=== PATIENT | female | born 1980 | race Hispanic/Latino ===

== ENCOUNTER 2017-02-21 13:23 | Inpatient (IN) | payer MEDICAID, OTHER ==
--- NOTE | 2017-02-21 14:37 | C.PDOC ---
History Of Present Illness <Rena Hartman - Last Filed: 02/21/17 22:47> <Davis Barker - Last Filed: 02/21/17 23:56> 36 y/o female presents to the ED requesting alcohol detox. Pt admits to alcohol abuse for the past 5 years, history of seizures, last was 5 months ago. Last drink this morning. Pt denies SI, HI, SOB, chest pain, nausea, vomiting, diarrhea, abdominal pain, headache, dizziness or any other complaints. (Rena Hartman) History Per: Patient History/Exam Limitations: no limitations Modifying Factor(s): Alcohol Severity: Mild Associated Symptoms: denies: Suicidal Thoughts Involuntary Hold By: None Recent travel outside of the [place]: No <Rena Hartman - Last Filed: 02/21/17 22:47> <Davis Barker - Last Filed: 02/21/17 23:56> Time Seen by Provider: 02/21/17 14:01 Chief Complaint (Nursing): Substance Abuse Past Medical History Reviewed: Historical Data, Nursing Documentation, Vital Signs - Medical History PMH: Anxiety, Bipolar Disorder (?), Depression Surgical History: Tonsillectomy Family History: States: Unknown Family Hx - Social History Hx Tobacco Use: Yes Hx Alcohol Use: Yes Hx Substance Use: No - Immunization History Hx Tetanus Toxoid Vaccination: No Hx Influenza Vaccination: No Hx Pneumococcal Vaccination: No <Rena Hartman - Last Filed: 02/21/17 22:47> Review Of Systems Except As Marked, All Systems Reviewed And Found Negative. Constitutional: Negative for: Fever Cardiovascular: Negative for: Chest Pain Respiratory: Negative for: Cough, Shortness of Breath Gastrointestinal: Negative for: Nausea, Vomiting, Abdominal Pain, Diarrhea Neurological: Negative for: Headache, Dizziness <Rena Hartman - Last Filed: 02/21/17 22:47> Physical Exam - Physical Exam Appears: Non-toxic, No Acute Distress, Other (intoxicated) Skin: Warm, Dry, No Rash Head: Atraumatic, Normacephalic Nose: Normal Neck: Normal, Normal ROM, Supple Chest: Symmetrical Cardiovascular: Rhythm Regular, No Murmur Respiratory: Normal Breath Sounds, No Rales, No Rhonchi, No Wheezing Gastrointestinal/Abdominal: Normal Exam, Soft, No Tenderness, No Guarding, No Rebound Extremity: Normal ROM Extremity: Bilateral: Atraumatic Neurological/Psych: Oriented x3 <Rena Hartman - Last Filed: 02/21/17 22:47> ED Course And Treatment - Laboratory Results Result Diagrams: 02/21/17 14:58 02/21/17 14:58 <Rena Hartman - Last Filed: 02/21/17 22:47> - Laboratory Results Result Diagrams: 02/21/17 14:58 02/21/17 14:58 Progress Note: Pt was signed out to me at 11pm by JUSTINE Hartman to f/up home mission worker evaluation. Pt was evaluated by the home mission worker and will be admitted to detox. <Davis Barker - Last Filed: 02/21/17 23:56> ED OBSERVATION Date of observation admission: 02/21/17 Time of observation admission: 14:30 <Rena Hartman - Last Filed: 02/21/17 22:47> <Davis Barker - Last Filed: 02/21/17 23:56> - Observation admission statement Patient is being placed in observation because:: Alcohol intoxication, detox (Rena Hartman) - Goals of Observation Goals of observation are:: Diagnostics, sobriety obs, re-eval for detox (Rena Hartman) - Progress Note Progress Note: 02/21/17 At 15:55, pt resting comfortably, not in any apparent distress. Afebrile, hemodynamicaly stable. Non-toxic. Neuorlogicaly intact. At 18:10, diagnostics review, normal. Alcohol 355. At 19: 20, pt sts, " feels anxious, withdrawing" and request Ativan. Pt appears slightly tremulous, anxious. Case discussed with PES and will re-evaluate patient at 11PM when sober. At 22:52, case discussed with ED attending : sobriety, re-eval and PES evaluation- pending. (Rena Hartman) Disposition <Rena Hartman - Last Filed: 02/21/17 22:47> Counseled Patient/Family Regarding: Studies Performed, Diagnosis - Disposition Disposition Time: 23:55 <Davis Barker - Last Filed: 02/21/17 23:56> - Disposition Disposition: HOSPITALIZED Condition: STABLE - Clinical Impression Clinical Impression: Alcohol use disorder, severe, dependence - PA / [employer] / Resident Statement MD/DO has reviewed & agrees with the documentation as recorded. - Scribe Statement The provider has reviewed the documentation as recorded by the Scribe <Rena Hartman - Last Filed: 02/21/17 22:47> <Davis Barker - Last Filed: 02/21/17 23:56> - Scribe Statement Lencho Mena All medical record entries made by the Scribe were at my direction and personally dictated by me. I have reviewed the chart and agree that the record accurately reflects my personal performance of the history, physical exam, medical decision making, and the department course for this patient. I have also personally directed, reviewed, and agree with the discharge instructions and disposition. (Rena Hartman) Decision To Admit <Rena Hartman - Last Filed: 02/21/17 22:47> - Pt Status Changed To: Hospital Disposition Of: Inpatient - Admit Certification Admit to Inpatient:: After my assessment, the patient will require hospitalization for at least two midnights. This is because of the severity of symptoms shown, intensity of services needed, and/or the medical risk in this patient being treated as an outpatient. - InPatient: Physician Admission Certification: I certify that this patient requires 2 or more midnights of care for the following reason:: Detox. - . Bed Request Type: Detox Admitting Physician: Karuna Fernandez <Davis Barker - Last Filed: 02/21/17 23:56> - . Patient Diagnosis: Alcohol use disorder, severe, dependence
[2017-02-21 15:02] LABS: BASO # 0.1 K/uL (0.0-0.2); BASO % 2.5 % (0.0-2.0); EOS # 0.3 K/uL (0.0-0.7); EOS % 4.9 % (0.0-4.0); HEMATOCRIT 37.5 % (34.0-47.0); LYMPH % 35.7 % (20.0-40.0); MEAN CELL VOLUME 94.4 fL (81.0-99.0); MEAN CORPUSCULAR HEMOGLOBIN 31.4 pg (27.0-31.0); MEAN CORPUSCULAR HGB CONC 33.2 g/dL (33.0-37.0); MEAN PLATELET VOLUME 8.9 fL (7.2-11.7); MONO # 0.5 K/uL (0.0-0.8); MONO % 8.8 % (0.0-10.0); RED CELL DISTRIBUTION WIDTH 19.7 % (11.5-14.5); WHITE BLOOD COUNT 5.5 K/uL (4.8-10.8)
[2017-02-21 15:11] LABS: CHLORIDE 102 mmol/L (98-107)
[2017-02-21 15:12] LABS: POTASSIUM 4.1 mmol/L (3.6-5.2); SODIUM 140 mmol/L (132-148)
[2017-02-21 15:14] LABS: ALB/GLOB RATIO 1.5 (1.0-2.1); ALKALINE PHOSPHATASE 83 U/L (38-126); ALT/SGPT 27 U/L (9-52); AST/SGOT 46 U/L (14-36); BILIRUBIN,TOTAL 0.5 mg/dL (0.2-1.3); BLOOD UREA NITROGEN 15 mg/dL (7-17); CARBON DIOXIDE 24 mmol/L (22-30); GFR AFRICAN-AMERICAN > 60; GLUCOSE,RANDOM 86 mg/dL (65-105); TOTAL PROTEIN 7.7 g/dL (6.3-8.3); URINE BILIRUBIN NEGATIVE (NEGATIVE); URINE BLOOD NEGATIVE (NEGATIVE); URINE COLOR Straw (YELLOW); URINE GLUCOSE (UA) NORMAL (Normal); URINE KETONE NEGATIVE (NEGATIVE); URINE LEUKOCYTE ESTERASE NEG Leu/uL (Negative); URINE PROTEIN NEGATIVE (NEGATIVE); URINE UROBILINOGEN NORMAL mg/dL (0.2-1.0); WBC URINE 1 /hpf (0-5)
[2017-02-21 15:15] LABS: CALCIUM 9.1 mg/dl (8.6-10.4)
[2017-02-21 15:32] LABS: ALCOHOL SERUM 335 mg/dl (0-10)
[2017-02-22] MEDS: Multiple Vitamins Tab PO SCH (09:58)
--- NOTE | 2017-02-22 15:45 | PCM.PSYCH ---
Initial Psychiatric Evaluation - Initial Psychiatric Evaluation Type of Admission: Voluntary Legal Status: Capacity Chief Complaint (in patient's own words): "Alcohol detox" History of Present Illness and Precipitating Events: Patient is a 36 year old female who lives with her though they are . She does not work and is supported by her who works in construction. Patient states she drinks 1 liter of vodka a day, as well as wine. Patient's first drink was at age 16. She first noticed it was a problem 7 years ago. She smokes 1 ppd. Patient was at [facility] for 28 days, then went to [facility] for 3 months. She went home from rehab 1 month ago and relapsed. Patient states she has tried suboxone, natrexone, vivitrol, and topomax in the past but they were not 100% effective. Patient states that on Vivitrol, she was drinking less and it was not as enjoyable. Patient has been to detox 15 times and rehab 4 times. Patient used to attend AA but cannot now due to DUI. Patient complains of depression, anxiety, and bipolar. She says she has waves of high energy for one week where she feels like she can do a lot of things and does not sleep. She will then crash for 3 days and not get out of bed. Patient denies trauma, domestic violence, suicide attempts. Patient plans to go to sober [facility] upon discharge. Home meds: abilify, trazodone, gabapentin, and visterol at home. Med: alcohol withdrawal seizures 2 months ago Family psych: both sets of grandparents with depression and anxiety. Time: 34 minutes Current Medications: Active Medications Generic Name Dose Route Start Last Admin Trade Name Freq PRN Reason Stop Dose Admin Aripiprazole 5 mg 02/22/17 22:00 Abilify PO HS ARLINE Chlordiazepoxide 25 mg 02/22/17 06:00 02/22/17 13:14 Librium PO 02/26/17 05:59 25 mg Q6H ARLINE Administration Taper Chlordiazepoxide 25 mg 02/22/17 00:18 02/22/17 09:59 Librium PO 25 mg Q4H PRN Administration Alcohol Withdrawal Folic Acid 1 mg 02/22/17 10:00 02/22/17 09:58 Folic Acid PO 1 mg DAILY ARLINE Administration Gabapentin 300 mg 06/09/17 10:00 02/22/17 13:20 Neurontin PO 300 mg TID ARLINE Administration Hydroxyzine HCl 25 mg 02/22/17 08:54 Atarax PO Q4H PRN Anxiety Ibuprofen 400 mg 02/22/17 08:54 Motrin Tab PO Q6H PRN Pain, moderate (4-7) Multivitamins 1 tab 02/22/17 10:00 02/22/17 09:58 Hexavitamin PO 1 tab DAILY ARLINE Administration Nicotine 1 patch 02/22/17 10:00 02/22/17 11:19 Nicoderm Cq TD 1 patch DAILY ARLINE Administration Thiamine HCl 100 mg 02/22/17 10:00 02/22/17 09:58 Vitamin B1 Tab PO 100 mg DAILY ARLINE Administration Trazodone HCl 100 mg 02/22/17 08:54 Desyrel PO HS PRN Insomnia Past Psychiatric History - Past Psychiatric History Previous Treatment History: Inpatient Pertinent Medical Hx (Current Medical&Sleep Prob, Allergies): Allergies Allergy/AdvReac Type Severity Reaction Status Date / Time No Known Allergies Allergy Verified 02/21/17 14:05 No Known Home Med 09/15/16 Review of Systems - Review of Systems All systems: reviewed and no additional remarkable complaints except - Psychiatric Psychiatric: Anxiety, Depression, Mood Swings. absent: Hallucinations, Homicidal Ideation, Paranoia, Suicidal Ideation Mental Status Examination - Personal Presentation Personal Presentation: Looks stated age - Affect Affect: Broad - Motor Activity Motor Activity: Calm - Reliability in Providing Information Reliability in Providing Information: Good - Speech Speech: Organized - Mood Mood: Depressed - Formal Thought Process Formal Thought Process: No Impairment - Obsessions/Compulsions Obsessions: No Compulsions: No - Cognitive Functions Orientation: Person, Place, Situation, Time Sensorium: Alert Attention/Concentration: Attentive Abstract Thinking: [place] Judgement: Intact, as evidence by: Insight regarding need for hospitalization Memory: Recent intact, as evidence by: Ability to recall events of the day, Remote intact, as evidenced by: Abilit to recall sig. life events - Risk Risk: Withdrawal - Strength & Assets Inventory Strength & Assets Inventory: Family support, Cooperative DSM 5 DX - DSM 5 DSM 5 Diagnosis: Alcohol withdrawal Alcohol use disorder - severe STEVIE Major depression - moderate - Recommended/Plan of Treatment Treatment Recommendations and Plan of Treatment: Alcohol dependence/withdrawal: - Start alcohol detox with Librium - Neurontin 300 mg PO TID - Vitamins - Support and psychoeducation - Refer to rehab post detox - follow up with [facility] - Attend AA after discharge STEVIE: - Atarax 25 mg PO Q4 PRN - anxiety - Support and CBT Major depression - Abilify 5 mg PO HS - Support and psychoeducation - Attend groups Smoking cessation - Nicoderm patch Projected ELOS: 4-5 days Prognosis: good - Smoking Cessation Smoking Cessation Initiated: Yes
[2017-02-22] MEDS: AVEENO TOP SCH ×2 (17:01→18:14)
--- NOTE | 2017-02-23 08:13 | PCM.PYCHPN ---
Psychiatric Progress Note - Psychiatric Progress Note Patient seen today, length of contact: 15 min Patient Chief Complaint: 'I was experiencing withdrawal symptoms.' Problems Identified/Issues Discussed: Patient seen and evaluated, chart reviewed and discussed with the nurse. The patient reports anxiety and reports withdrawal symptoms including shakes, anxiety, headaches and sweating. She reports irritable mood but denies any feelings of hopelessness or helplessness. She denies any suicidal ideation or homicidal ideation. She is tolerating the detox medications and denies any side effects. Supportive therapy and psychoeducation were given. Medication Change: Yes (Librium taper) Medical Record Reviewed: Yes Mental Status Examination - Cognitive Function Orientation: Person, Place, Situation, Time Memory: Intact Attention: WNL Concentration: Poor Association: WNL Fund of Knowledge: Poor - Mood Mood: Anxious - Affect Affect: Constricted - Speech Speech: Appropriate - Formal Thought Process Formal Thought Process: No Impairment - Suicidal Ideation Suicidal Ideation: No - Homicidal Ideation Homicidal Ideation: No Goal/Treatment Plan - Goal/Treatment Plan Need for Continued Stay: Discharge may exacerbated symptoms, Severe functional impairment Progress Toward Problem(s) and Goals/Treatment Plan: Alcohol dependence/withdrawal: - Start alcohol detox with Librium - Neurontin 300 mg PO TID - Vitamins - Support and psychoeducation - Refer to rehab post detox - follow up with [facility] - Attend AA after discharge STEVIE: - Atarax 25 mg PO Q4 PRN - anxiety - Support and CBT Major depression - Abilify 5 mg PO HS - Support and psychoeducation - Attend groups Smoking cessation - Nicoderm patch - Smoking Cessation Smoking Cessation Initiated: No
[2017-02-23] MEDS: AVEENO TOP SCH ×2 (10:14→17:00)
[2017-02-23] MEDS: Multiple Vitamins Tab PO SCH (10:15)
[2017-02-23] MEDS ORDERED: Magnesium Hydroxide Susp 30 ml UD PO ONE (22:15)
[2017-02-24] MEDS: Multiple Vitamins Tab PO SCH (10:17)
[2017-02-24] MEDS: AVEENO TOP SCH ×2 (10:17→17:08)
[2017-02-24 11:35] VITALS: RESP 18
--- NOTE | 2017-02-24 13:44 | PCM.PYCHPN ---
Psychiatric Progress Note - Psychiatric Progress Note Patient seen today, length of contact: 16 min Patient Chief Complaint: feeling very anxious Problems Identified/Issues Discussed: Patient seen and evaluated, chart reviewed and discussed with the nurse. Today patient reports racing of thoughts, anxiety and poor sleep. As per staff patient remained anxious and med seeking. However she denies any feelings of hopelessness or helplessness and denies any suicidal ideation or homicidal ideation. She is tolerating the detox medications and denies any side effects. Supportive therapy and psychoeducation were given. Medication Change: Yes (Librium taper, Increase Abilify) Medical Record Reviewed: Yes Mental Status Examination - Cognitive Function Orientation: Person, Place, Situation, Time Memory: Intact Attention: WNL Concentration: Poor Association: WNL Fund of Knowledge: Poor - Mood Mood: Anxious - Affect Affect: Broad - Speech Speech: Soft - Formal Thought Process Formal Thought Process: No Impairment - Suicidal Ideation Suicidal Ideation: No - Homicidal Ideation Homicidal Ideation: No Goal/Treatment Plan - Goal/Treatment Plan Need for Continued Stay: Discharge may exacerbated symptoms, Severe functional impairment Progress Toward Problem(s) and Goals/Treatment Plan: Alcohol dependence/withdrawal: - Start alcohol detox with Librium - Neurontin 300 mg PO TID - Vitamins - Support and psychoeducation - Refer to rehab post detox - follow up with [facility] - Attend AA after discharge STEVIE: - Atarax 25 mg PO Q4 PRN - anxiety - Support and CBT Major depression - Increase Abilify 10 mg PO HS - Support and psychoeducation - Attend groups Smoking cessation - Nicoderm patch - Smoking Cessation Smoking Cessation Initiated: No
[2017-02-24] MEDS ORDERED: Bacitracin Ointment 30 GM TUBE TOP PRN (13:54)
--- NOTE | 2017-02-25 08:44 | PCM.PYCHDC ---
Mental Status Examination - Mental Status Examination Orientation: Person, Place, Situation, Time Memory: Intact Mood: Neutral Affect: Broad Speech: Appropriate Attention: WNL Concentration: WNL Association: WNL Fund of Knowledge: WNL Formal Thought Process: No Impairment Suicidal Ideation: No Current Homicidal Ideation?: No Discharge Summary - Discharge Note Reason for Hospitalization: Alcohol detox Consultations:: List each consultation separately and include: 1. Reason for request. 2. Findings. 3. Follow-up Summary of Hospital Course include:: 1. Description of specific treatment plan utilized for patients during their course of treatmen. 2. Summarize the time- course for resolution of acute symptoms and/or regressed behaviors. 3. Describe issues identified and worked on during hospitalization. 4. Describe medication utilized. 5. Describe medical problems identified and treated. 6. Reassessment of suicide risk Summary of Hospital Course: The pt was admitted and started on treatment for alcohol detox with psychotherapy, support, psychoeducation and medications. WA and CBT used. The pt attended groups and activities, as well as milieu therapy. All the risks and benefits of medications are discussed and the patient understood and agreed. After care discussed with the patient. Pt to go to [facility] followed by [facility] once they are open. Attend AA and group sessions. - Final Diagnosis (DSM 5) Condition upon Discharge: STABLE DSM 5: Alcohol withdrawal Alcohol use disorder - severe STEVIE Major depression - moderate Disposition: HOME/ ROUTINE Follow-up Treatment Plan: Continue below medications after discharge. Follow after care plan as discussed. Use relapse prevention skills Return to ER or call 911 if suicidal, homicidal or symptoms relapse. Stay away from stress, alcohol and drugs. Attend AA and group meetings. See primary doctor once a year. Prescriptions/Medication Reconciliation: ARIPiprazole [Abilify] 10 mg PO HS #30 tab Gabapentin [Neurontin] 300 mg PO TID #90 cap traZODone [Desyrel] 100 mg PO HS PRN #30 tab PRN Reason: Insomnia - Smoking Cessation Smoking Cessation Medication prescribed: No - Antipsychotic Medications Pt discharged on 2 or more routine antipsychotic medications: No
[2017-02-25] MEDS: Multiple Vitamins Tab PO SCH (09:03)
[2017-02-25] MEDS: AVEENO TOP SCH (09:04)
[2017-02-25 09:30] VITALS: BP 100/75; PULSE 87; TEMP 97.6; O2SAT 99
== END 2017-02-25 10:40 | disposition home or self-care (01) | DRG 751 ==
LOC: C.ER 13:23 → C.9OBSV 14:30 → OBSVTOIN 23:56 → C.7D 02-22 00:08
PROVIDERS: ADMIT Psychiatry & Neurology Psychiatry; ATTEND Psychiatry & Neurology Psychiatry
PROC: HZ2ZZZZ Detoxification Services for Substance Abuse Treatment (ICD-10-PCS; principal; 2017-02-21)
PROC: HZ56ZZZ Individual Psychotherapy for Substance Abuse Treatment, Psychoeducation (ICD-10-PCS; 2017-02-21)
PROC: HZ59ZZZ Individual Psychotherapy for Substance Abuse Treatment, Supportive (ICD-10-PCS; 2017-02-21)
DX: F10.230 Alcohol dependence with withdrawal, uncomplicated (principal); F31.9 Bipolar disorder, unspecified; F10.220 Alcohol dependence with intoxication, uncomplicated; Y90.8 Blood alcohol level of 240 mg/100 ml or more; F41.1 Generalized anxiety disorder; F17.210 Nicotine dependence, cigarettes, uncomplicated

== ENCOUNTER 2017-09-27 17:01 | Inpatient (IN) | payer MEDICAID, OTHER ==
--- NOTE | 2017-09-27 17:37 | C.PDOC ---
History Of Present Illness 37 year old female presents to the emergency department requesting detox from alcohol. Reports she drinks about 1 L of alcohol daily. Last drink was this morning. Patient is prescreened. Denies any suicidal or homicidal ideation. Time Seen by Provider: 09/27/17 17:22 Chief Complaint (Nursing): Psychiatric Evaluation History Per: Patient History/Exam Limitations: no limitations Past Medical History Reviewed: Historical Data, Nursing Documentation, Vital Signs Vital Signs: Last Vital Signs Temp 98.3 F 09/27/17 17:16 Pulse 111 H 09/27/17 17:16 Resp 19 09/27/17 17:16 BP 119/83 09/27/17 17:16 Pulse Ox 96 09/27/17 19:07 - Medical History PMH: Anxiety, Bipolar Disorder (?), Depression Surgical History: Tonsillectomy - [facility] Procedures DETOXIFICATION SERVICES FOR SUBSTANCE ABUSE TREATMENT (02/21/17) GROUP [employer] FOR SUBSTANCE ABUSE TREATMENT, PSYCHOEDUCATION (06/22/16) INDIV PSYCHOTHERAPY FOR SUBSTANCE ABUSE TREATMENT, SUPPORT (02/21/17) INDIV PSYCHOTHERAPY FOR SUBSTANCE ABUSE, PSYCHOEDUCATION (02/21/17) Family History: States: Unknown Family Hx - Social History Hx Tobacco Use: Yes Hx Alcohol Use: Yes Hx Substance Use: No - Immunization History Hx Tetanus Toxoid Vaccination: Yes Hx Influenza Vaccination: No Hx Pneumococcal Vaccination: No Review Of Systems Except As Marked, All Systems Reviewed And Found Negative. Physical Exam - Physical Exam Appears: Well, No Acute Distress, Other (Alcohol on breath) Skin: Normal Color, Warm, Dry Head: Atraumatic, Normacephalic Eye(s): bilateral: Normal Inspection, EOMI Neck: Normal ROM Cardiovascular: Rhythm Regular, No Murmur Respiratory: Normal Breath Sounds, No Decreased Breath Sounds, No Accessory Muscle Use, No Wheezing Gastrointestinal/Abdominal: Normal Exam, Soft, No Tenderness Extremity: Bilateral: Atraumatic, Normal Color And Temperature, Normal ROM Neurological/Psych: Oriented x3, Normal Speech Gait: Steady ED Course And Treatment - Laboratory Results Result Diagrams: 09/27/17 18:26 09/27/17 18:26 Lab Interpretation: No Acute Changes O2 Sat by Pulse Oximetry: 96 (RA) Pulse Ox Interpretation: Normal Medical Decision Making Medical Decision Making: Labs ordered and reviewed. LFT elevated, likely related to alcoholism. ETOH is 345 tail worker contacted for evaluation. Needs to wait for sobriety Patient signed out to JUSTINE Tripp pending crisis evaluation and admission for detox Disposition - Disposition Disposition Time: 19:00 Condition: STABLE - POA Present On Arrival: None - Clinical Impression Clinical Impression: Alcohol dependence - Scribe Statement Scribe Attestation: Documented by Rosa Maria Canales, acting as a scribe for Trinity Chester PA-C. Provider Scribe Attestation: All medical record entries made by the Scribe were at my direction and personally dictated by me. I have reviewed the chart and agree that the record accurately reflects my personal performance of the history, physical exam, medical decision making, and the department course for this patient. I have also personally directed, reviewed, and agree with the discharge instructions and disposition. Physician Patient Turnover Patient Signed Over To: Natalie Tripp Handoff Comments: Pending sobriety, crisis eval, dispo
[2017-09-27 17:58] LABS: HCG,QUALITATIVE URINE NEGATIVE (NEGATIVE); SQUAMOUS EPITHIAL 9 /hpf (0-5); URINE BACTERIA RARE (<OCC); URINE BILIRUBIN NEGATIVE (NEGATIVE); URINE BLOOD NEGATIVE (NEGATIVE); URINE CLARITY Hazy (Clear); URINE COLOR Yellow (YELLOW); URINE GLUCOSE (UA) NORMAL (Normal); URINE LEUKOCYTE ESTERASE NEG Leu/uL (Negative); URINE NITRATE NEGATIVE (NEGATIVE); URINE PROTEIN NEGATIVE (NEGATIVE); URINE UROBILINOGEN NORMAL mg/dL (0.2-1.0)
[2017-09-27 18:10] LABS: BARBITURATES, UR NEGATIVE (NEGATIVE); OPIATES, UR NEGATIVE (NEGATIVE); PHENCYCLIDINE, UR NEGATIVE (NEGATIVE)
[2017-09-27 18:11] LABS: BENZODIAZEPINES, UR POSITIVE (NEGATIVE)
[2017-09-27 18:36] LABS: BASO # 0.2 K/uL (0.0-0.2); BASO % 2.9 % (0.0-2.0); EOS # 0.1 K/uL (0.0-0.7); EOS % 2.6 % (0.0-4.0); HEMOGLOBIN 13.5 g/dL (11.0-16.0); LYMPH # 2.9 K/uL (1.0-4.3); LYMPH % 52.1 % (20.0-40.0); MEAN CELL VOLUME 87.6 fL (81.0-99.0); MEAN CORPUSCULAR HEMOGLOBIN 30.5 pg (27.0-31.0); MEAN CORPUSCULAR HGB CONC 34.9 g/dL (33.0-37.0); MEAN PLATELET VOLUME 8.1 fL (7.2-11.7); MONO # 0.6 K/uL (0.0-0.8); MONO % 11.4 % (0.0-10.0); NEUT # 1.7 K/uL (1.8-7.0); NRBC % 0.1 % (0.0-2.0); RBC 4.41 Mil/uL (3.80-5.20); RED CELL DISTRIBUTION WIDTH 16.6 % (11.5-14.5); WHITE BLOOD COUNT 5.6 K/uL (4.8-10.8)
[2017-09-27 18:42] LABS: ALB/GLOB RATIO 1.3 (1.0-2.1); ALBUMIN 4.4 g/dL (3.5-5.0); ALT/SGPT 280 U/L (9-52); AST/SGOT 91 U/L (14-36); BLOOD UREA NITROGEN 16 mg/dL (7-17); CALCIUM 8.9 mg/dl (8.6-10.4); GFR AFRICAN-AMERICAN > 60; GFR NON-AFRICAN AMERICAN > 60
--- NOTE | 2017-09-28 04:12 | PCM.BM ---
<Mehnaz Ortiz - Last Filed: 09/28/17 04:11> Treatment Plan Problems - Problems identified on initial assessmt Ineffective Coping Skills Date Initiated: 09/28/17 Time Initiated: 04:11 Assessment reference: NA Status: Active Treatment assets and liabiliti Patient Assests: ADL independent Patient Liabilities: substance abuse - Milieu Protocol Maintain good personal hygiene: daily Encourage regular showers, daily Remind patient to perform daily oral care, other Assist patient to perform ADL's Maintain personal safety: every shift Educate patient to report safety concerns to staff, every shift Monitor environment for contraband/sharps Medication safety: Monitor for expected outcome, potential side effects: every shift, Assess barriers to learning: every shift, Assess readiness for medication education: every shift <Vamshi Isidro - Last Filed: 09/30/17 14:56> - Diagnosis (1) Alcohol dependence Status: Acute Interventions: 09/30/17 14:57 * Assess 7x/week regarding severity of withdrawal * Educate regarding risks, benefits, side effects and alternatives of medications * Use Motivational Interviewing for abstinence * Use CBT for relapse prevention * Medication management for withdrawal symptoms * Encourage medication assisted treatment * <Ashlyn Culver - Last Filed: 09/30/17 16:13> Family Contact Family involvement: Famliy/SO not involved Family contact: Patient declines to allow family contact at present - Goals for Treatment Patient goals for treatment: Complete detox and apply for Sober Living Residence.
[2017-09-28] MEDS: Multiple Vitamins Tab PO SCH (09:11)
--- NOTE | 2017-09-28 10:11 | PCM.PSYCH ---
Initial Psychiatric Evaluation - Initial Psychiatric Evaluation Type of Admission: Voluntary Legal Status: Capacity Chief Complaint (in patient's own words): I came in to get help.' History of Present Illness and Precipitating Events: Pt. is a 37 y/o CF, , unemployed, who lives with her and who came to the ED to get help in alcohol detox. Pt. reports that she was attending an inpt rehab, [facility] and she relapsed as soon as she came home, almost 2 weeks ago. Pt. reports of drinking almost 4 pints-1 liter daily. Yesterday she consumed more than 2 pints and started shaking, so she came to the to get help. Patient reports withdrawal symptoms including sweating, headaches, anxiety, and nausea. Patient reports that she has been for about 7 years and her also drinks daily. However, Pt.s refuses to get help for his drinking. Pt. reports that she also suffers from anxiety and depression. Pt. also reports that her father and older sister also suffer from anxiety and depression. Pt. denies any past psychiatric admissions, but admitted to receiving psychiatric treatment with a private doctor. Pt. reports that she took her first drink at age 16 and began to drink excessively after she got . Pt. has no children. Pt. denies any arrest records or history of domestic violence. However , she denies any feelings of hopelessness and helplessness. Denies any suicidal ideation or homicidal ideation. Patient denies any auditory or visual hallucinations or any psychotic symptoms. Denies any manic symptoms. Denies any other substance abuse. PMH None reported Current Medications: Active Medications Generic Name Dose Route Start Last Admin Trade Name J Luis PRN Reason Stop Dose Admin Folic Acid 1 mg 09/28/17 10:00 09/28/17 09:11 Folic Acid PO 1 mg DAILY ARLINE Administration Hydroxyzine HCl 25 mg 09/28/17 04:18 Atarax PO Q4H PRN Anxiety Lorazepam 2 mg 09/28/17 08:30 09/28/17 09:11 Ativan PO 10/03/17 08:29 2 mg Q4 ARLINE Administration Taper Multivitamins 1 tab 09/28/17 10:00 09/28/17 09:11 Hexavitamin PO 1 tab DAILY ARLINE Administration Ondansetron HCl 4 mg 09/28/17 05:09 Zofran Odt PO Q8H PRN Nausea/Vomiting Thiamine HCl 100 mg 09/28/17 10:00 09/28/17 09:11 Vitamin B1 Tab PO 100 mg DAILY ARLINE Administration Trazodone HCl 50 mg 09/28/17 08:07 Desyrel PO HS PRN Insomnia Past Psychiatric History - Past Psychiatric History Previous Treatment History: None Pertinent Medical Hx (Current Medical&Sleep Prob, Allergies): Allergies Allergy/AdvReac Type Severity Reaction Status Date / Time No Known Allergies Allergy Verified 09/27/17 17:19 ARIPiprazole [Abilify] 10 mg PO HS #30 tab 02/25/17 Gabapentin [Neurontin] 300 mg PO TID #90 cap 02/25/17 Home Med 1 unit TOP BID ea 02/25/17 traZODone [Desyrel] 100 mg PO HS PRN #30 tab 02/25/17 Review of Systems - Review of Systems All systems: reviewed and no additional remarkable complaints except - Psychiatric Psychiatric: Anxiety, Irritability, Mood Swings Mental Status Examination - Personal Presentation Personal Presentation: Looks stated age - Affect Affect: Constricted - Motor Activity Motor Activity: Calm - Reliability in Providing Information Reliability in Providing Information: Good - Speech Speech: Organized - Mood Mood: Depressed, Anxious - Formal Thought Process Formal Thought Process: No Impairment - Obsessions/Compulsions Obsessions: No Compulsions: No - Cognitive Functions Orientation: Person, Place, Situation, Time Sensorium: Alert Attention/Concentration: Attentive Abstract Thinking: [place] Estimate of Intelligence: Below average Judgement: Imparied, as evidence by: Poor judgement, Imparied, as evidence by: Lack of insight into illness - Risk Risk: Withdrawal, Diminished functioning - Strength & Assets Inventory Strength & Assets Inventory: Family support DSM 5 DX - DSM 5 DSM 5 Diagnosis: Alcohol use disorder severe Alcohol withdrawal uncomplicated Bipolar disorder MRE depressed mild - Recommended/Plan of Treatment Treatment Recommendations and Plan of Treatment: Alcohol use disorder severe -CBT -Psychoeducation -Supportive therapy, individual therapy -Use GA for abstinence Alcohol withdrawal uncomplicated -CBT -Psychoeducation -Supportive therapy, individual therapy -Ativanm when necessary -Start Ativan taper -Start folic acid/thiamine/multivitamin Bipolar disorder MRE depressed mild -CBT -Psychoeducation -Supportive therapy, group therapy, individual therapy -Abilify 10 mg PO QHS -Neurontin 300 mg PO TID -Trazodone 50 mg by mouth daily at bedtime
[2017-09-29] MEDS: Multiple Vitamins Tab PO SCH (10:04)
--- NOTE | 2017-09-29 12:27 | PCM.PYCHPN ---
Psychiatric Progress Note - Psychiatric Progress Note Patient seen today, length of contact: 15 min Patient Chief Complaint: I am feeling little better.' Problems Identified/Issues Discussed: Patient seen and evaluated, chart reviewed and discussed with the nurse. Patient remained isolated, confined and withdrawn. She still reports withdrawal symptoms including nausea, headaches, cramps and sweating. She reports irritable mood but denies any feelings of hopelessness and helplessness. She denies any SI/HI/AVH. She is taking medication and denies any side effects. She needs more time for stabilization. Supportive therapy and psychoeducation were given. Medication Change: Yes Medical Record Reviewed: Yes Mental Status Examination - Cognitive Function Orientation: Person, Place, Situation, Time Memory: Intact Attention: WNL Concentration: Poor Association: WNL Fund of Knowledge: Poor - Mood Mood: Depressed, Anxious - Affect Affect: Constricted - Speech Speech: Soft - Formal Thought Process Formal Thought Process: No Impairment - Suicidal Ideation Suicidal Ideation: No - Homicidal Ideation Homicidal Ideation: No Goal/Treatment Plan - Goal/Treatment Plan Need for Continued Stay: Severe depression anxiety, Severe functional impairment Progress Toward Problem(s) and Goals/Treatment Plan: Alcohol use disorder severe -CBT -Psychoeducation -Supportive therapy, individual therapy -Use CA for abstinence Alcohol withdrawal uncomplicated -CBT -Psychoeducation -Supportive therapy, individual therapy -Ativanm when necessary -Ativan taper -Folic acid/thiamine/multivitamin Bipolar disorder MRE depressed severe without psychotic features -CBT -Psychoeducation -Supportive therapy, group therapy, individual therapy -Abilify 10 mg PO QHS -Neurontin 300 mg PO TID -Trazodone 50 mg by mouth daily at bedtime
[2017-09-30] MEDS: Multiple Vitamins Tab PO SCH (09:36)
[2017-09-30 13:08] LABS: HEPATITIS B SURFACE AG NEGATIVE (NEGATIVE)
[2017-09-30 13:13] LABS: HEPATITIS A IGM NEGATIVE (NEGATIVE); HEPATITIS B CORE AB Negative (NEGATIVE)
--- NOTE | 2017-09-30 13:19 | PCM.PYCHPN ---
Psychiatric Progress Note - Psychiatric Progress Note Patient seen today, length of contact: 15 min Patient Chief Complaint: "I need to go to a sober living place" Problems Identified/Issues Discussed: The pt is seen, chart reviewed, case discussed with staff. 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 Support given, CBT and AZ used briefly No new symptoms reported, improving slowly and needs more time No SEs from medications, risks discussed. After care discussed - she says she cannot go back home b/c the oliver and she already contacted some [facility] and also may be a rehab She got her 3rd DUI last year and did 3 months in [facility] and 3 months in rehab. Medication Change: Yes Medical Record Reviewed: Yes Mental Status Examination - Cognitive Function Orientation: Person, Place, Situation, Time Memory: Intact Attention: WNL Concentration: Poor Association: WNL Fund of Knowledge: Poor - Mood Mood: Depressed, Anxious - Affect Affect: Constricted - Speech Speech: Soft - Formal Thought Process Formal Thought Process: No Impairment - Suicidal Ideation Suicidal Ideation: No - Homicidal Ideation Homicidal Ideation: No Goal/Treatment Plan - Goal/Treatment Plan Need for Continued Stay: Severe depression anxiety, Severe functional impairment Progress Toward Problem(s) and Goals/Treatment Plan: Ativan detox Gabapentin for augmentation Topamax for alcohol cravings As needed medications All risks, benefits and alternatives of the meds discussed, and the pt agreed and understood. Attend groups and activities Supportive therapy and psychoeducation AZ for abstinence CBT for relapse prevention Encourage MAT Refer to rehab or IOP, and self-help groups Smoking cessation with AZ Nicotine patch 34 min - Smoking Cessation Smoking Cessation Initiated: Yes
[2017-09-30 13:25] LABS: HEPATITIS C ANTIBODY Negative (NEGATIVE)
[2017-10-01] MEDS: Multiple Vitamins Tab PO SCH (09:33)
--- NOTE | 2017-10-01 13:57 | PCM.PYCHPN ---
Psychiatric Progress Note - Psychiatric Progress Note Patient seen today, length of contact: 16 min Patient Chief Complaint: "I am feeling very anxious" Problems Identified/Issues Discussed: The pt is seen, chart reviewed, case discussed with staff. Patient states she is feeling very anxious. Discussed with patient that she must ask the nurse for medications. The pt is compliant with medications and reports no side-effects. Symptoms are improving but needs more time to stabilize. After care discussed, support and psychoeducation given. Medication Change: Yes Medical Record Reviewed: Yes Mental Status Examination - Cognitive Function Orientation: Person, Place, Situation, Time Memory: Intact Attention: WNL Concentration: WNL Association: WNL Fund of Knowledge: WNL - Mood Mood: Anxious - Affect Affect: Broad - Speech Speech: Soft - Formal Thought Process Formal Thought Process: No Impairment - Suicidal Ideation Suicidal Ideation: No - Homicidal Ideation Homicidal Ideation: No Goal/Treatment Plan - Goal/Treatment Plan Need for Continued Stay: Severe depression anxiety, Severe functional impairment Progress Toward Problem(s) and Goals/Treatment Plan: Ativan detox Gabapentin for augmentation Topamax for alcohol cravings As needed medications All risks, benefits and alternatives of the meds discussed, and the pt agreed and understood. Attend groups and activities Supportive therapy and psychoeducation PA for abstinence CBT for relapse prevention Encourage MAT Refer to rehab or IOP, and self-help groups Smoking cessation with PA Nicotine patch
[2017-10-02] MEDS: Multiple Vitamins Tab PO SCH (09:09)
[2017-10-02 16:19] VITALS: RESP 18
[2017-10-02] MEDS ORDERED: Vitamins A & D Oint UD Foilpak TOP PRN (18:19)
--- NOTE | 2017-10-03 00:36 | PCM.PYCHPN ---
Psychiatric Progress Note - Psychiatric Progress Note Patient seen today, length of contact: 16 min Patient Chief Complaint: "I am better" Problems Identified/Issues Discussed: The pt is seen, chart reviewed, case discussed with staff. Support given, CBT and NE used briefly No new symptoms reported, improving slowly and needs more time No SEs from medications, risks discussed. After care discussed: [facility] Medication Change: Yes (detox changes daily) Medical Record Reviewed: Yes Mental Status Examination - Cognitive Function Orientation: Person, Place, Situation, Time Memory: Intact Attention: WNL Concentration: WNL Association: WNL Fund of Knowledge: WNL - Mood Mood: Anxious - Affect Affect: Broad - Speech Speech: Soft - Formal Thought Process Formal Thought Process: No Impairment - Suicidal Ideation Suicidal Ideation: No - Homicidal Ideation Homicidal Ideation: No Goal/Treatment Plan - Goal/Treatment Plan Need for Continued Stay: Severe depression anxiety, Severe functional impairment Progress Toward Problem(s) and Goals/Treatment Plan: Ativan detox Gabapentin for augmentation Topamax for alcohol cravings As needed medications All risks, benefits and alternatives of the meds discussed, and the pt agreed and understood. Attend groups and activities Supportive therapy and psychoeducation NE for abstinence CBT for relapse prevention Encourage MAT Refer to rehab or IOP, and self-help groups Smoking cessation with NE Nicotine patch
[2017-10-03 05:17] VITALS: O2SAT 99
[2017-10-03 07:52] VITALS: BP 95/69; PULSE 90; TEMP 98.3
--- NOTE | 2017-10-03 14:34 | PCM.PYCHDC ---
Mental Status Examination - Mental Status Examination Orientation: Person, Place, Situation, Time Memory: Intact Mood: Neutral Affect: Broad Speech: Appropriate Attention: WNL Concentration: WNL Association: WNL Fund of Knowledge: WNL Formal Thought Process: No Impairment Suicidal Ideation: No Current Homicidal Ideation?: No Discharge Summary - Discharge Note Reason for Hospitalization: Detox from alcohol Consultations:: List each consultation separately and include: 1. Reason for request. 2. Findings. 3. Follow-up Summary of Hospital Course include:: 1. Description of specific treatment plan utilized for patients during their course of treatmen. 2. Summarize the time- course for resolution of acute symptoms and/or regressed behaviors. 3. Describe issues identified and worked on during hospitalization. 4. Describe medication utilized. 5. Describe medical problems identified and treated. 6. Reassessment of suicide risk Summary of Hospital Course: The pt was admitted and started on treatment with psychotherapy, support, psychoeducation and medications. IL and CBT used. The pt attended groups and activities, as well as milieu therapy. All the risks and benefits of medications are discussed and the patient understood and agreed. The pt improved with the treatments provided. After care discussed with the patient. She went to a [facility] - Final Diagnosis (DSM 5) Condition upon Discharge: STABLE DSM 5: Alcohol use disorder severe Alcohol withdrawal uncomplicated Bipolar disorder MRE depressed mild Disposition: REHAB FACILITY/REHAB UNIT Follow-up Treatment Plan: Continue below medications after discharge. Follow after care plan as discussed. Use relapse prevention skills Return to ER or call 911 if suicidal, homicidal or symptoms relapse. Stay away from stress, alcohol and drugs. See primary doctor regularly and get labs. Prescriptions/Medication Reconciliation: ARIPiprazole [Abilify] 10 mg PO DAILY #30 tab Gabapentin [Neurontin] 400 mg PO TID #90 cap Topiramate [Topamax] 50 mg PO BID #60 tab traZODone [Desyrel] 100 mg PO HS PRN #30 tab PRN Reason: Insomnia - Antipsychotic Medications Pt discharged on 2 or more routine antipsychotic medications: No
== END 2017-10-03 08:30 | DRG 751 ==
LOC: C.ER 17:01 → C.7D 09-28 02:43
PROVIDERS: ADMIT Psychiatry & Neurology Psychiatry; ATTEND Psychiatry & Neurology Psychiatry
PROC: HZ2ZZZZ Detoxification Services for Substance Abuse Treatment (ICD-10-PCS; principal; 2017-09-28)
PROC: HZ52ZZZ Individual Psychotherapy for Substance Abuse Treatment, Cognitive-Behavioral (ICD-10-PCS; 2017-09-28)
PROC: HZ59ZZZ Individual Psychotherapy for Substance Abuse Treatment, Supportive (ICD-10-PCS; 2017-09-28)
PROC: HZ56ZZZ Individual Psychotherapy for Substance Abuse Treatment, Psychoeducation (ICD-10-PCS; 2017-09-28)
PROC: HZ57ZZZ Individual Psychotherapy for Substance Abuse Treatment, Motivational Enhancement (ICD-10-PCS; 2017-09-28)
DX: F10.239 Alcohol dependence with withdrawal, unspecified (principal); F31.4 Bipolar disorder, current episode depressed, severe, without psychotic features; F17.200 Nicotine dependence, unspecified, uncomplicated; F41.9 Anxiety disorder, unspecified; Y90.8 Blood alcohol level of 240 mg/100 ml or more; Z79.899 Other long term (current) drug therapy

== ENCOUNTER 2019-01-12 18:20 | Inpatient (IN) | payer MEDICAID, OTHER ==
[2019-01-12 18:50] VITALS: BMI 22.6
--- NOTE | 2019-01-12 20:27 | C.PDOC ---
History Of Present Illness Patient presents to the ED requesting detox for alcohol abuse. Patient reports his last drink was today [employer]. Patient denies SI/HI, hallucinations, other medical complaints at this time. Time Seen by Provider: 01/12/19 20:27 Chief Complaint (Nursing): Substance Abuse History Per: Patient History/Exam Limitations: intoxication Onset/Duration Of Symptoms: Hrs Current Symptoms Are (Timing): Still Present Suicide/Self Injury Attempted (Context): None Modifying Factor(s): Alcohol Associated Symptoms: denies: Depression, Suicidal Thoughts, Suicidal Plan Recent travel outside of the [place]: No Additional History Per: Patient Past Medical History Reviewed: Historical Data, Nursing Documentation, Vital Signs Vital Signs: Last Vital Signs Temp 97.8 F 01/12/19 18:50 Pulse 111 H 01/12/19 18:50 Resp 18 01/12/19 18:50 BP 121/82 01/12/19 18:50 Pulse Ox 99 01/12/19 18:50 - Medical History PMH: Anxiety, Bipolar Disorder, Depression Denies: Diabetes, Hepatitis, HIV, HTN, Chronic Kidney Disease, Seizures, Sexually Transmitted Disease Surgical History: Tonsillectomy - [facility] Procedures DETOXIFICATION SERVICES FOR SUBSTANCE ABUSE TREATMENT (09/28/17) GROUP MANAGER COSTING FOR SUBSTANCE ABUSE TREATMENT, PSYCHOEDUCATION (06/22/16) INDIV PSYCHOTHERAPY FOR SUBSTANCE ABUSE TREATMENT, SUPPORT (09/28/17) INDIV PSYCHOTHERAPY FOR SUBSTANCE ABUSE, COGNITIV BEHAVIORAL (09/28/17) INDIV PSYCHOTHERAPY FOR SUBSTANCE ABUSE, MOTIVATION ENHANCE (09/28/17) INDIV PSYCHOTHERAPY FOR SUBSTANCE ABUSE, PSYCHOEDUCATION (09/28/17) Family History: States: Unknown Family Hx - Social History Hx Tobacco Use: Yes Hx Alcohol Use: Yes Hx Substance Use: No - Immunization History Hx Tetanus Toxoid Vaccination: No Hx Influenza Vaccination: No Hx Pneumococcal Vaccination: No Review Of Systems Constitutional: Negative for: Fever, Chills Cardiovascular: Negative for: Chest Pain Respiratory: Negative for: Shortness of Breath Gastrointestinal: Negative for: Nausea, Vomiting, Abdominal Pain Skin: Negative for: Rash Psych: Negative for: Depression, Suicidal ideation Physical Exam - Physical Exam Appears: Non-toxic, No Acute Distress Skin: Warm, Dry Head: Normacephalic Eye(s): bilateral: Normal Inspection Neck: Supple Chest: Symmetrical Cardiovascular: Rhythm Regular Respiratory: No Rales, No Rhonchi, No Wheezing Gastrointestinal/Abdominal: Soft, No Tenderness Extremity: Bilateral: Atraumatic, Normal Color And Temperature, Normal ROM Neurological/Psych: Oriented x3, Normal Speech, Normal Cognition Gait: Steady ED Course And Treatment - Laboratory Results Result Diagrams: 01/12/19 20:42 01/12/19 20:42 O2 Sat by Pulse Oximetry: 99 (ON RA) Pulse Ox Interpretation: Normal Progress Note: Plan: - Labs. - UA. - Crisis Disposition Discussed With Dr.: Vamshi Isidro Comment: accepted the pt on his service and took over the care at Doctor Will See Patient In The: Hospital Counseled Patient/Family Regarding: Studies Performed, Diagnosis - Disposition Disposition: HOSPITALIZED Disposition Time: 20:27 Condition: FAIR - Clinical Impression Clinical Impression: Alcohol abuse, Alcohol use disorder, severe, dependence - Scribe Statement The provider has reviewed the documentation as recorded by the Scribe Ant Kent All medical record entries made by the Scribe were at my direction and personally dictated by me. I have reviewed the chart and agree that the record accurately reflects my personal performance of the history, physical exam, medical decision making, and the department course for this patient. I have also personally directed, reviewed, and agree with the discharge instructions and disposition. Decision To Admit - Pt Status Changed To: Hospital Disposition Of: Inpatient - Admit Certification Admit to Inpatient:: After my assessment, the patient will require hospitalization for at least two midnights. This is because of the severity of symptoms shown, intensity of services needed, and/or the medical risk in this patient being treated as an outpatient. - InPatient: Physician Admission Certification: I certify that this patient requires 2 or more midnights of care for the following reason:: After my assessment, the patient will require hospitalization for at least two midnights. This is because of the severity of symptoms shown, intensity of services needed, and/or the medical risk in this patient being treated as an outpatient. - . Bed Request Type: Detox Admitting Physician: Vamshi Isidro Patient Diagnosis: Alcohol abuse, Alcohol use disorder, severe, dependence
[2019-01-12 20:53] LABS: BASO # 0.1 K/uL (0.0-0.2); BASO % 2.3 % (0.0-2.0); EOS # 0.4 K/uL (0.0-0.7); EOS % 7.1 % (0.0-4.0); HEMOGLOBIN 12.3 g/dL (11.0-16.0); LYMPH # 2.4 K/uL (1.0-4.3); LYMPH % 47.2 % (20.0-40.0); MEAN CORPUSCULAR HEMOGLOBIN 30.7 pg (27.0-31.0); MEAN CORPUSCULAR HGB CONC 33.7 g/dL (33.0-37.0); MEAN PLATELET VOLUME 7.6 fL (7.2-11.7); MONO # 0.6 K/uL (0.0-0.8); MONO % 12.2 % (0.0-10.0); NEUT # 1.6 K/uL (1.8-7.0); NEUT % 31.2 % (50.0-75.0); RBC 4.01 Mil/uL (3.80-5.20); RED CELL DISTRIBUTION WIDTH 15.8 % (11.5-14.5)
[2019-01-12 20:54] LABS: MEAN CELL VOLUME 91.2 fL (81.0-99.0)
[2019-01-12 21:10] LABS: ALB/GLOB RATIO 1.4 (1.0-2.1); ALBUMIN 4.3 g/dL (3.5-5.0); ALT/SGPT 27 U/L (9-52); AST/SGOT 51 U/L (14-36); BLOOD UREA NITROGEN 18 mg/dL (7-17); CALCIUM 9.1 mg/dl (8.6-10.4); GFR NON-AFRICAN AMERICAN > 60
[2019-01-12 21:33] LABS: BARBITURATES, UR NEGATIVE (NEGATIVE); BENZODIAZEPINES, UR NEGATIVE (NEGATIVE); PHENCYCLIDINE, UR NEGATIVE (NEGATIVE)
[2019-01-12 21:34] LABS: SQUAMOUS EPITHIAL 3 /hpf (0-5); URINE BACTERIA OCC (<OCC); URINE BILIRUBIN NEGATIVE (NEGATIVE); URINE BLOOD 2+ (NEGATIVE); URINE CLARITY Clear (Clear); URINE COLOR Yellow (YELLOW); URINE GLUCOSE (UA) NORMAL (Normal); URINE LEUKOCYTE ESTERASE NEG Leu/uL (Negative); URINE PROTEIN NEGATIVE (NEGATIVE); URINE UROBILINOGEN NORMAL mg/dL (0.2-1.0)
[2019-01-12 21:36] LABS: HCG,QUALITATIVE URINE POSITIVE (NEGATIVE)
[2019-01-12 22:31] LABS: OPIATES, UR POSITIVE (NEGATIVE)
--- NOTE | 2019-01-13 06:16 | PCM.BM ---
<AmrikCheryl nicole Troy - Last Filed: 01/13/19 06:14> Treatment Plan Problems - Problems identified on initial assessmt anxiety related to substance use Date Initiated: 01/13/19 Time Initiated: 06:16 Assessment reference: NA Status: Active Defensive Coping Date Initiated: 01/13/19 Assessment reference: NA Status: Active Treatment assets and liabiliti Patient Assests: ADL independent Patient Liabilities: substance abuse - Milieu Protocol Maintain good personal hygiene: daily Encourage regular showers, daily Remind patient to perform daily oral care, daily Assist patient to perform ADL's Maintain personal safety: every shift Educate patient to report safety concerns to staff, every shift Monitor environment for contraband/sharps Medication safety: Monitor for expected outcome, potential side effects: every shift, Assess barriers to learning: every shift, Assess readiness for medication education: every shift <Vamshi Isidro - Last Filed: 01/13/19 12:06> - Diagnosis (1) Alcohol use disorder, severe, dependence Status: Acute Interventions: 01/13/19 12:06 * Assess 7x/week regarding severity of withdrawal * Educate regarding risks, benefits, side effects and alternatives of medications * Use Motivational Interviewing for abstinence * Use CBT for relapse prevention * Medication management for withdrawal symptoms * Encourage medication assisted treatment * <Ashlyn Culver - Last Filed: 01/13/19 13:23> Family Contact Family involvement: Famliy/SO not involved - Goals for Treatment Patient goals for treatment: Complete detox and apply for short-term residential treatment program. Discharge/Continuing Care - Education Needs Education Needs: Patient Medication, Patient Diagnosis/Disease Process, Patient Coping Skills, Patient Anger Management skills, Patient Placement options, Patient Community resources, Significant Other Diagnosis/Disease Process, Significant Other Community resources - Discharge Discharge Criteria: No longer exhibiting s/s of withdrawal, Reduction of target symptoms Discharge to:: Substance Abuse Rehab - Treatment Team Participation Patient/Family/SO Statement: 01/13/19 13:22 "I wanna go to short-term from here..." Discussed with Family/SO: No Was Patient/Family/SO present at Treatment Team Meeting: Yes
--- NOTE | 2019-01-13 12:05 | PCM.PSYCH ---
Initial Psychiatric Evaluation - Initial Psychiatric Evaluation Type of Admission: Voluntary Legal Status: Capacity Chief Complaint (in patient's own words): "I need detox" History of Present Illness and Precipitating Events: Pt is a 38 year old female with PMHx of alcohol use disorder and depression who presents to [facility] ER on 01/12/19 after her friend dropped her off to get detox for alcohol use. She is unemployed and lives with . No child Pt drinks about 1 L of vodka per day. She starts drinking from early in the morning to feel well. She has been drinking heavily since 6-7 years ago but started in her early teens. This is her 3rd time in detox in [facility] with her last visit about 1 year ago. She was sober for 9-10 months since leaving detox and going to a sober living facility. She was in [facility] but learned that she was and she left to get an . Pt took hydrocodone after that because she was "drinking and not thinking clearly". However, she denies having a problem with using opioids. She attends IOP and AA meetings on and off. Pt was on maintenance therapy with Naltrexone and Vivitrol shot, which she got 1 month ago, but it didn't stop her from drinking. She was also in rehabs many times. She is currently feeling ill and notes shaking, difficulty concentrating, nausea upon waking up, dizziness, and sensitivity to light. CIWA seems to have been ab ove 10. She is tired of "feeling sick all the time" and wants to get sober. She had a seizure 6 months ago while withdrawing and DTs more than once. Recently too, she claims. She plans to go to a rehab after finishing detox. Psych: Dx'ed with bipolar d/o, depression, has had SI in the past, no admissions Med: alcohol withdrawal seizures in the past Family psych: both sets of grandparents with depression and anxiety. Current Medications: Active Medications Generic Name Dose Route Start Last Admin Trade Name Freq PRN Reason Stop Dose Admin Chlordiazepoxide 25 mg 01/13/19 03:07 01/13/19 03:21 Librium PO 25 mg Q6 PRN Administration alcohol withdrawal Chlordiazepoxide 25 mg 01/13/19 10:00 01/13/19 09:29 Librium PO 01/18/19 09:59 25 mg Q6 ARLINE Administration Taper Clonidine HCl 0.1 mg 01/13/19 08:55 Catapres PO Q4H PRN Symptoms of alcohol withdrawl Hydroxyzine HCl 25 mg 01/13/19 03:09 01/13/19 06:38 Atarax PO 25 mg Q4 PRN Administration Anxiety Nicotine 1 patch 01/13/19 10:30 01/13/19 10:56 Nicoderm Cq TD 1 patch DAILY ARLINE Administration Trazodone HCl 50 mg 01/13/19 03:09 01/13/19 03:21 Desyrel PO 50 mg HS PRN Administration insomnia Past Psychiatric History - Past Psychiatric History Previous Treatment History: Intensive Outpatient Pertinent Medical Hx (Current Medical&Sleep Prob, Allergies): Allergies Allergy/AdvReac Type Severity Reaction Status Date / Time No Known Allergies Allergy Verified 01/12/19 18:49 Ambien 01/12/19 Gabapentin 01/12/19 Review of Systems - Psychiatric Psychiatric: Abnormal Sleep Pattern, Anhedonia, Anxiety, Behavioral Changes, Change in Appetite, Depression, Difficulty Concentrating. absent: Hallucinations, Homicidal Ideation, Paranoia, Suicidal Ideation Mental Status Examination - Personal Presentation Personal Presentation: Looks stated age - Affect Affect: Constricted - Motor Activity Motor Activity: Calm - Reliability in Providing Information Reliability in Providing Information: Good - Speech Speech: Organized - Mood Mood: Depressed, Anxious - Formal Thought Process Formal Thought Process: No Impairment - Cognitive Functions Orientation: Person, Place, Situation, Time Sensorium: Alert Attention/Concentration: Easily distracted Estimate of Intelligence: Average Judgement: Intact, as evidence by: Insight regarding need for hospitalization Memory: Recent intact, as evidence by: Ability to recall events of the day, Remote intact, as evidenced by: Abilit to recall sig. life events - Risk Risk: Withdrawal, Diminished functioning - Strength & Assets Inventory Strength & Assets Inventory: Cooperative - Limitations Limitations: Other DSM 5 DX - DSM 5 DSM 5 Diagnosis: Alcohol withdrawal Alcohol use disorder - severe STEVIE Major depression - moderate - Recommended/Plan of Treatment Treatment Recommendations and Plan of Treatment: Alcohol dependence/withdrawal: - Start alcohol detox with Librium - Neurontin 300 mg PO TID - Vitamins - Support and psychoeducation - Refer to rehab post detox - follow up with [facility] - Attend AA after discharge STEVIE: - Lexapro - Atarax 25 mg PO Q4 PRN - anxiety - Support and CBT Major depression - Lexapro - Support and psychoeducation - Attend groups Smoking cessation - Nicoderm patch Repeat HCG 34 min Projected ELOS: 4-5 days - Smoking Cessation Smoking Cessation Initiated: Yes
[2019-01-14] MEDS: Multiple Vitamins Tab PO SCH (12:09)
--- NOTE | 2019-01-14 14:22 | PCM.PYCHPN ---
Psychiatric Progress Note - Psychiatric Progress Note Patient seen today, length of contact: 18 min Patient Chief Complaint: "I need to leave by Saturday" Problems Identified/Issues Discussed: The pt is seen, chart reviewed, case discussed with staff. Support and psychoeducation given, CBT and CA used briefly Pt is improving slowly and needs more time, still has ongoing symptoms. No SEs from medications, risks discussed. After care discussed - She now wants to leave at least a day early bc she has "tings to do" and also wants to pursue her (which was done with a pill not other methods) to make sure all's fine. She understood the risks of taking detox and other meds while and she said she would terminate the . A f/u [facility] ordered. Risks of leaving early also discussed Medication Change: Yes (detox changes daily) Medical Record Reviewed: Yes Mental Status Examination - Cognitive Function Orientation: Person, Place, Situation, Time Memory: Intact Attention: WNL Concentration: Poor Association: WNL Fund of Knowledge: WNL - Mood Mood: Depressed, Anxious - Affect Affect: Constricted - Speech Speech: Appropriate - Formal Thought Process Formal Thought Process: No Impairment - Suicidal Ideation Suicidal Ideation: No - Homicidal Ideation Homicidal Ideation: No Goal/Treatment Plan - Goal/Treatment Plan Need for Continued Stay: Discharge may exacerbated symptoms, Severe functional impairment Progress Toward Problem(s) and Goals/Treatment Plan: Alcohol dependence/withdrawal: - Start alcohol detox with Librium - Neurontin 300 mg PO TID - Vitamins - Support and psychoeducation - Refer to rehab post detox - follow up with [facility] - Attend AA after discharge STEVIE: - Lexapro - Atarax 25 mg PO Q4 PRN - anxiety - Support and CBT Major depression - Lexapro - Support and psychoeducation - Attend groups Smoking cessation - Nicoderm patch Repeat HCG
[2019-01-15] MEDS: Multiple Vitamins Tab PO SCH (09:07)
--- NOTE | 2019-01-15 13:34 | PCM.PYCHPN ---
Psychiatric Progress Note - Psychiatric Progress Note Patient seen today, length of contact: 17 min Patient Chief Complaint: "I am OK" Problems Identified/Issues Discussed: The pt is seen, chart reviewed, case discussed with staff. The pt is compliant with medications and reports no side-effects. Symptoms are improving but needs more time to stabilize. Pt attends groups and activities. Support given, psycho-education provided. After care discussed. Still wants to leave early HCG dropped two days in a row. It was in the beginning too. Medication Change: Yes (detox changes daily) Medical Record Reviewed: Yes Mental Status Examination - Cognitive Function Orientation: Person, Place, Situation, Time Memory: Intact Attention: WNL Concentration: Poor Association: WNL Fund of Knowledge: WNL - Mood Mood: Depressed, Anxious - Affect Affect: Constricted - Speech Speech: Appropriate - Formal Thought Process Formal Thought Process: No Impairment - Suicidal Ideation Suicidal Ideation: No - Homicidal Ideation Homicidal Ideation: No Goal/Treatment Plan - Goal/Treatment Plan Need for Continued Stay: Discharge may exacerbated symptoms, Severe functional impairment Progress Toward Problem(s) and Goals/Treatment Plan: Alcohol dependence/withdrawal: - Start alcohol detox with Librium - Neurontin 300 mg PO TID - Vitamins - Support and psychoeducation - Refer to rehab post detox - follow up with [facility] - Attend AA after discharge STEVIE: - Lexapro - Atarax 25 mg PO Q4 PRN - anxiety - Support and CBT Major depression - Lexapro - Support and psychoeducation - Attend groups Smoking cessation - Nicoderm patch
[2019-01-15] MEDS ORDERED: Magnesium Hydroxide Susp 30 ml UD PO ONE (14:31)
--- NOTE | 2019-01-16 09:08 | PCM.PYCHDC ---
Mental Status Examination - Mental Status Examination Orientation: Person Discharge Summary - Discharge Note Laboratory Data: Abnormal Lab Results 01/15/19 11:21 Beta HCG, Quant 42.01 Consultations:: List each consultation separately and include: 1. Reason for request. 2. Findings. 3. Follow-up Summary of Hospital Course include:: 1. Description of specific treatment plan utilized for patients during their course of treatmen. 2. Summarize the time- course for resolution of acute symptoms and/or regressed behaviors. 3. Describe issues identified and worked on during hospitalization. 4. Describe medication utilized. 5. Describe medical problems identified and treated. 6. Reassessment of suicide risk Summary of Hospital Course: Pt is a 38 year old female with PMHx of alcohol use disorder and depression who presents to [facility] ER on 01/12/19 after her friend dropped her off to get detox for alcohol use. She is unemployed and lives with . No child Pt drinks about 1 L of vodka per day. She starts drinking from early in the morning to feel well. She has been drinking heavily since 6-7 years ago but started in her early teens. This is her 3rd time in detox in [facility] with her last visit about 1 year ago. She was sober for 9-10 months since leaving detox and going to a sober living facility. She was in [facility] but learned that she was and she left to get an . Pt took hydrocodone after that because she was "drinking and not thinking clearly". However, she denies having a problem with using opioids. She attends IOP and AA meetings on and off. Pt was on maintenance therapy with Naltrexone and Vivitrol shot, which she got 1 month ago, but it didn't stop her from drinking. She was also in rehabs many times. She is currently feeling ill and notes shaking, difficulty concentrating, nausea upon waking up, dizziness, and sensitivity to light. CIWA seems to have been above 10. She is tired of "feeling sick all the time" and wants to get sober. She had a seizure 6 months ago while withdrawing and DTs more than once. Recently too, she claims. She plans to go to a rehab after finishing detox. Psych: Dx'ed with bipolar d/o, depression, has had SI in the past, no admissions Med: alcohol withdrawal seizures in the past Family psych: both sets of grandparents with depression and anxiety. She left a day early. Risks discussed. She will attend [facility] program Macrobid and topamax started for UTI and cravings respectively. Medicine contacted for advice. She did have UTI sxs (moderate) - Final Diagnosis (DSM 5) Condition upon Discharge: IMPROVED Disposition: HOME/ ROUTINE Follow-up Treatment Plan: Alcohol dependence/withdrawal: - Start alcohol detox with Librium - Neurontin 300 mg PO TID - Vitamins - Support and psychoeducation - Refer to rehab post detox - follow up with [facility] - Attend AA after discharge STEVIE: - Lexapro - Atarax 25 mg PO Q4 PRN - anxiety - Support and CBT Major depression - Lexapro - Support and psychoeducation - Attend groups Smoking cessation - Nicoderm patch Prescriptions/Medication Reconciliation: Escitalopram [Lexapro] 10 mg PO DAILY #30 tab hydrOXYzine HCl [Atarax] 25 mg PO BID PRN #60 tab PRN Reason: Anxiety Multivitamins [Hexavitamin] 1 tab PO DAILY #30 tab Nitrofurantoin Macrocrystals [Macrobid] 100 mg PO Q12H #14 cap Topiramate [Topamax] 50 mg PO BID #60 tab traZODone [Desyrel] 100 mg PO HS PRN #60 tab PRN Reason: Sleep
[2019-01-16] MEDS: Multiple Vitamins Tab PO SCH (09:14)
[2019-01-16 09:19] VITALS: BP 107/78; PULSE 88; RESP 20; TEMP 97.4; O2SAT 100
== END 2019-01-16 09:45 | disposition home or self-care (01) | DRG 750 ==
LOC: C.ER 18:20 → C.7D 22:45
PROVIDERS: ADMIT Psychiatry & Neurology Psychiatry; ATTEND Psychiatry & Neurology Psychiatry
PROC: GZHZZZZ Group Psychotherapy (ICD-10-PCS; principal; 2019-01-12)
PROC: HZ2ZZZZ Detoxification Services for Substance Abuse Treatment (ICD-10-PCS; 2019-01-12)
PROC: GZ58ZZZ Individual Psychotherapy, Cognitive-Behavioral (ICD-10-PCS; 2019-01-12)
PROC: GZ56ZZZ Individual Psychotherapy, Supportive (ICD-10-PCS; 2019-01-12)
PROC: HZ52ZZZ Individual Psychotherapy for Substance Abuse Treatment, Cognitive-Behavioral (ICD-10-PCS; 2019-01-12)
PROC: HZ59ZZZ Individual Psychotherapy for Substance Abuse Treatment, Supportive (ICD-10-PCS; 2019-01-12)
PROC: HZ56ZZZ Individual Psychotherapy for Substance Abuse Treatment, Psychoeducation (ICD-10-PCS; 2019-01-12)
PROC: HZ42ZZZ Group Counseling for Substance Abuse Treatment, Cognitive-Behavioral (ICD-10-PCS; 2019-01-12)
PROC: HZ46ZZZ Group Counseling for Substance Abuse Treatment, Psychoeducation (ICD-10-PCS; 2019-01-12)
DX: F10.230 Alcohol dependence with withdrawal, uncomplicated (principal); N39.0 Urinary tract infection, site not specified; Z87.891 Personal history of nicotine dependence; G47.00 Insomnia, unspecified; F41.1 Generalized anxiety disorder; F32.1 Major depressive disorder, single episode, moderate; Y90.8 Blood alcohol level of 240 mg/100 ml or more; Z33.1 Pregnant state, incidental